=== PATIENT | female | born 1960 | race Caucasian/White ===

== ENCOUNTER → 2016-10-15 | Outpatient (CLI) | payer OTHER ==
--- NOTE | 2016-10-15 11:37 | MM ---
Reason for exam: additional evaluation requested from prior study. Last mammogram was performed 1 year and 1 month ago. History: Patient is postmenopausal and is nulliparous. Family history of breast cancer in maternal aunt at age 50. Benign left breast needle localization of both breasts, November 20, 2013. Benign US LT VAD breast biopsy of the left breast, September 13, 2013. Benign excisional biopsy of the left breast, 2006. Physical Findings: Nurse did not find any significant physical abnormalities on exam. MG 3D Diag Mammo W/Cad SU Bilateral CC and MLO view(s) were taken. Prior study comparison: September 22, 2015, bilateral MG 3d diag mammo w/cad SU. May 21, 2014, bilateral MG diagnostic mammo w CAD SU. The breast tissue is heterogeneously dense. This may lower the sensitivity of mammography. Finding #1: Architectural distortion in the left breast consistent with previous biopsy. Finding #2: There are typically benign calcifications in both breasts. These results were verbally communicated with the patient and result sheet given to the patient on 10/15/16. ASSESSMENT: Benign, BI-RAD 2 RECOMMENDATION: Routine screening mammogram of both breasts in 1 year.
== END | disposition home or self-care (01) ==
LOC: RADMAMWWP 10:34
PROVIDERS: ATTEND Surgery
DX: R92.8 Other abnormal and inconclusive findings on diagnostic imaging of breast (principal)
CPT/HCPCS: 77051 ×2; G0204; G0279

== ENCOUNTER → 2017-03-21 | Outpatient (CLI) | payer OTHER ==
--- NOTE | 2017-03-22 08:49 | CT ---
EXAMINATION TYPE: CT UROGRAM WO/W CON AND WITH 3-D RECONSTRUCTION RENDERINGS DATE OF EXAM: 03/21/2017 COMPARISON: NONE HISTORY: Microscopic hematuria, pelvic pain and back pain Technique: Departmental pre and postcontrast with delays and with multiple 3-D renderings at an [facility] workstation. CT DLP: 4521.40 mGycm. Automated exposure control for dose reduction was used. CONTRAST: Performed without and with IV Contrast, patient injected with 100 mL of Omnipaque 300. FINDINGS: The right kidney is markedly shrunken, measuring 5 x 4 x 3 cm. The left kidney measures 13 x 7 x 6 cm and has normal appearance. There are no renal calcifications or mass. Both kidneys enhance and excre te contrast. The upper and lower collecting systems have normal appearance. The urinary bladder has n ormal appearance. There are 2 subcentimeter low-attenuation left adrenal nodules, likely benign adrenal adenomas. A few scattered small simple hepatic cysts are noted. Prominent sigmoid diverticulosis is noted, without d iverticulitis. The remainder of the solid and hollow viscera of the abdomen and pelvis are negative f or visceromegaly or solid mass. There is a 2.5 cm calcification within the uterine fundus, consistent with incidental calcified leiomyoma. There are no abnormal gas or fluid collections. No adenopathy. Vasculature and skeletal structures ar e unremarkable, as are the extra abdominal pelvic visualized structures. IMPRESSION: MARKEDLY ATROPHIC RIGHT KIDNEY; NO OTHER GENITOURINARY FINDINGS.
== END | disposition home or self-care (01) ==
LOC: RADCTMAIN 18:57
PROVIDERS: ATTEND Urology
DX: R31.21 Asymptomatic microscopic hematuria (principal)
CPT/HCPCS: 74178; 74400; Q9967

== ENCOUNTER → 2017-09-06 | Outpatient (CLI) | payer OTHER ==
--- NOTE | 2017-09-06 16:58 | PN ---
PROGRESS NOTE I am seeing Nhung for followup regarding her CPAP treatment. The patient was diagnosed having symptomatic obstructive sleep apnea based on a home study that showed an AHI of 32, and there was a positional component to her disease where disease was worse in the supine body position, and she was started on a CPAP pressure of 11 cm of water. On today's evaluation, the patient is doing well. She is getting more accustomed to the CPAP therapy. Initially she was having some difficulties and ultimately she got switched to AirFit P10 nose pillows. Sometimes she feels that she cannot fully expand her lungs or take a deep breath; however, she does that also in the morning when she is awake while off the CPAP. As such, there may be an anxiety component to her subjective sensation of dyspnea. The patient is trying to become more compliant, as she is seeing benefit from the treatment and she seems to be waking up more alert and refreshed during the day. At times she leaks through her mouth and she is using a chin strap. Snoring has completely subsided. I have only a 19-day compliance data on her CPAP machine. I noted her treatment is successful. Leak is 20 L/minute. Her AHI is obviously less than 5, and as such the treatment has been successful . BP is 122/66, pulse 58, respirations 16. Temperature is 97.5 . Weight is 224, saturation 95% on room air. GENERAL APPEARANCE: Calm, comfortable. No acute distress. Head is atraumatic, normocephalic. Neck is supple. There is no JVD. No goiter or neck masses. LUNGS: Diminished breath sounds bilaterally; otherwise clear. Heart sounds are regular rate and rhythm. Normal S1, S2. No S3. No S4. No murmurs. Abdomen is soft, nontender. No organomegaly. EXTREMITIES: No edema. No cyanosis or clubbing. NEUROLOGIC: The patient is alert and oriented x3. There is no focal neurological deficit. PSYCHIATRIC: No anxiety or depression. IMPRESSION: 1. Symptomatic obstructive sleep apnea with an AHI of 32, currently on CPAP pressure of 11 cm of water. 2. Some difficulties tolerating the CPAP; however, despite subjective sensation of dyspnea, the patient is improving. Her AHI less than 5. No leaks around the mask and the patient seems to be benefiting from the treatment. 3. Hyperlipidemia. 4. Anxiety/depression. 5. Acid reflux. PLAN: 1. Continue treating the anxiety. 2. Continue treating the acid reflux. 3. Switch this patient to an automatic mode with a maximum pressure of 11, minimum pressure of 4. Automatic pressure will allow this patient to get exposed to lower CPAP pressures. 4. Use a chin strap if needed, especially if there are ongoing leaks from the mouth. 5. May consider switching this patient to a full-face mask at a later stage. I will see her back in 30 to 90 days for a full compliance evaluation. MMODL / IJN: [id number] /
== END ==
LOC: SLEEP 14:28
PROVIDERS: ATTEND Internal Medicine Critical Care Medicine
DX: G47.33 Obstructive sleep apnea (adult) (pediatric) (principal); E78.5 Hyperlipidemia, unspecified; F41.9 Anxiety disorder, unspecified; F32.9 Major depressive disorder, single episode, unspecified; K21.9 Gastro-esophageal reflux disease without esophagitis

== ENCOUNTER → 2017-11-01 | Outpatient (CLI) | payer OTHER ==
--- NOTE | 2017-11-01 20:26 | PN ---
PROGRESS NOTE DATE OF SERVICE: 11/01/2017. HISTORY: Nhung is doing well, coming in for a compliancy check. The patient was diagnosed having severe symptomatic obstructive sleep apnea with an AHI of 32. Initially she was started on CPAP pressure of 11, however, she was having some difficulty with air leak. I switch this patient to an automatic mode, maximizing the pressure at 11. I also gave her the AirFit N10 nose mask. On today's evaluation, she is doing better. Her average CPAP pressure is around 9.6 over the past 30 days. Her leak factor is only 19 L/minute. Her AHI while on treatment is down to 2.4 and her average CPAP use is around 8.7 hours per night. She is waking up refreshed and alert during the day. I think the adjustments done on the CPAP machine and the change in the mask interface helped with her overall compliance and clinical response. The patient is waking up much more alert and awake during the day. Her weight is stable, probably up by few pounds since her last evaluation. For the most part she does not have any new problems or comorbidities. PHYSICAL EXAMINATION: BP is 114/79, pulse 64, respirations 16, temp 97.5 saturation 96% on room air. Weight is 228, height 5 feet 7 inches, BMI 35.7. GENERAL APPEARANCE: Obese, calm, comfortable. HEAD: Atraumatic, normocephalic. NECK: Supple. No JVD. No goiter or neck masses. LUNGS: Clear to auscultation. HEART: Sounds regular rhythm. Normal S1, S2. No S3. No murmurs. ABDOMEN: Soft, nontender. No organomegaly. EXTREMITIES: No edema. No cyanosis or clubbing. NEUROLOGIC: Alert and oriented x3. There is no focal neurological deficit. IMPRESSION: 1. Symptomatic obstructive sleep apnea with an apnea-hypopnea index of 32. The patient has improved in terms of compliance and clinical response with above- mentioned adjustments. The leak factor is improved and the patient is tolerating the CPAP without any major difficulties. Currently she is on a auto CPAP with a maximum pressure of 11. 2. Hypersomnia, improved. 3. Hypertension. 4. Anxiety/depression. 5. Acid reflux. PLAN: 1. Continue auto CPAP with a maximum pressure of 11. 2. Continue N10 nose mask. 3. Weight loss. 4. See me back in a year's time in followup regarding obstructive sleep apnea. The patient will be also seen at the [facility]. MMODL / IJN: [id number] /
== END | disposition home or self-care (01) ==
LOC: SLEEP 16:07
PROVIDERS: ATTEND Internal Medicine Critical Care Medicine
DX: G47.33 Obstructive sleep apnea (adult) (pediatric) (principal); I10 Essential (primary) hypertension; F41.9 Anxiety disorder, unspecified; F32.9 Major depressive disorder, single episode, unspecified; K21.9 Gastro-esophageal reflux disease without esophagitis; Z99.89 Dependence on other enabling machines and devices

== ENCOUNTER → 2017-12-16 | Outpatient (CLI) | payer OTHER ==
--- NOTE | 2017-12-19 10:42 | MM ---
Reason for exam: screening (asymptomatic). Last mammogram was performed 1 year and 2 months ago. History: Patient is postmenopausal and is nulliparous. Family history of breast cancer in maternal aunt at age 50. Benign left breast needle localization of both breasts, November 20, 2013. Benign US LT VAD breast biopsy of the left breast, September 13, 2013. Benign excisional biopsy of the left breast, 2006. Physical Findings: A clinical breast exam by your physician is recommended on an annual basis and results should be correlated with mammographic findings. MG 3D Screening Mammo W/Cad Bilateral CC and MLO view(s) were taken. Prior study comparison: October 15, 2016, bilateral MG 3d diag mammo w/cad SU. September 22, 2015, bilateral MG 3d diag mammo w/cad SU. The breast tissue is heterogeneously dense. This may lower the sensitivity of mammography. No suspicious abnormality. Left post biopsy change. No significant changes when compared with prior studies. ASSESSMENT: Benign, BI-RAD 2 RECOMMENDATION: Routine screening mammogram of both breasts in 1 year.
== END | disposition home or self-care (01) ==
LOC: RADMAMWWP 11:02
PROVIDERS: ATTEND Obstetrics & Gynecology
DX: Z12.31 Encounter for screening mammogram for malignant neoplasm of breast (principal)
CPT/HCPCS: 77063; 77067

== ENCOUNTER 2018-12-27 09:43 | Day surgery (SDC) | payer OTHER ==
[2018-12-25 13:40] VITALS: BMI 35.6
--- NOTE | 2018-12-27 08:17 | P.GSHP ---
History of Present Illness H&P Date: 12/27/18 CHIEF COMPLAINT: GERD and colon screen HISTORY OF PRESENT ILLNESS: The patient is a 58-year-old female who presents with gastroesophageal reflux disease and need for colon screen. Upper and lower endoscopy were offered for further evaluation and management. PAST MEDICAL HISTORY: Please see list. PAST SURGICAL HISTORY: Please see list. MEDICATIONS: Please see list. ALLERGIES: Please see list. SOCIAL HISTORY: No illicit drug use FAMILY HISTORY: No reports of Crohn disease or ulcerative colitis. REVIEW OF ORGAN SYSTEMS: CONSTITUTIONAL: No reports of fevers or chills. GI: Denies any blood in stools or constipation. PHYSICAL EXAM: VITAL SIGNS: Stable GENERAL: Well-developed pleasant in no acute distress. HEENT: No scleral icterus. Extraocular movements grossly intact. Moist buccal mucosa. NECK: Supple without lymphadenopathy. CHEST: Unlabored respirations. Equal bilateral excursions. CARDIOVASCULAR: Regular rate and rhythm. Distal 2+ pulses. ABDOMEN: Soft, nondistended. MUSCULOSKELETAL: No clubbing, cyanosis, or edema. ASSESSMENT: 1. Gastroesophageal reflux disease 2. Colon screen. PLAN: 1. Recommend proceeding with an upper and lower endoscopy Past Medical History Past Medical History: COPD, GERD/Reflux, Hyperlipidemia, Sleep Apnea/CPAP/BIPAP Additional Past Medical History / Comment(s): hiatal hernia, IBS, diverticulitis, anemia, History of Any Multi-Drug Resistant Organisms: None Reported Past Surgical History: Breast Surgery Additional Past Surgical History / Comment(s): left breast biopsy Past Anesthesia/Blood Transfusion Reactions: No Reported Reaction Smoking Status: Former smoker - Past Family History Mother Family Medical History: No Reported History Medications and Allergies Home Medications Medication Instructions Recorded Confirmed Type Cholecalciferol [Vitamin D3] 2,000 unit PO DAILY 12/25/18 12/25/18 History FLUoxetine HCL [PROzac] 40 mg PO DAILY 12/25/18 12/25/18 History Ferrous Sulfate [Feosol] 325 mg PO HS 12/25/18 12/25/18 History Omeprazole [PriLOSEC] 20 mg PO AC-BRKFST 12/25/18 12/25/18 History Umeclidinium [place] [Incruse 1 puff INHALATION QAM 12/25/18 12/25/18 History Ellipta] Vitamin B Complex 1 each PO DAILY 12/25/18 12/25/18 History diphenhydrAMINE [Benadryl] 25 mg PO HS PRN 12/25/18 12/25/18 History Allergies Allergy/AdvReac Type Severity Reaction Status Date / Time acetaminophen [From [place]] Allergy Rash/Hives Verified 12/25/18 13:29 hydrocodone [From [place]] Allergy Rash/Hives Verified 12/25/18 13:29 nitrofurantoin Allergy Diarrhea Verified 12/25/18 13:30 [From Macrobid] Penicillins Allergy Rash/Hives Verified 12/25/18 13:29 piroxicam [From [place]] Allergy swelling Verified 12/25/18 13:29 of neck and face
[~2018-12-27 09:43] MED LIST: LIDOCAINE 1% 20 ML VIAL (10MG/ML) FOR IV START INTRADERMA PRN
[2018-12-27] MEDS: LACTATED RINGERS 1,000 ML IV SCH ×2 (10:06→10:11)
[2018-12-27 10:09] VITALS: RESP 16; TEMP 98.6
[2018-12-27] MEDS ORDERED: LIDOCAINE 1% INJ 10MG/ML (20 ML MDV) ONE (10:13)
[2018-12-27] MEDS ORDERED: PROPOFOL 10 MG/ML 20 ML VIAL IV ONE (10:13)
--- NOTE | 2018-12-27 10:54 | P.PCN ---
Date of Procedure: 12/27/18 Description of Procedure: PREOPERATIVE DIAGNOSIS: Gastroesophageal reflux disease. Epigastric abdominal pain History of hiatal hernia POSTOPERATIVE DIAGNOSIS: Gastroesophageal reflux disease. Epigastric abdominal pain Duodenitis, acute Chronic gastritis Gastric polyps OPERATION: Esophagogastroduodenoscopy with biopsies along antrum and duodenum SURGEON: Lola Nelson MD ANESTHESIA: MAC. INDICATIONS: The patient is a 58-year-old female who presents with a history of reflux disease that has come severe with epigastric abdominal pain. She reports history of hiatal hernia. As her symptoms have gotten worse, upper endoscopy was offered for further evaluation and assessment. Benefits and risks of the procedure were described. Informed consent was obtained. DESCRIPTION: The patient was brought into the endoscopy suite and laid in the left lateral decubitus position. An Olympus gastroscope was passed along the posterior oropharynx down to the distal esophagus where the squamocolumnar junction was encountered at 40 cm from the incisors. The stomach was entered and no bile reflux was found. Additional findings are listed below. Biopsies with cold forceps were obtained of the antrum. The first through third portion of the duodenum was examined and unremarkable. Retroflexion of the scope confirmed Hill grade 2 lower esophageal valve. The squamocolumnar junction demonstrated LA grade A erosive esophagitis. The stomach was desufflated. The patient tolerated the procedure well. FINDINGS: Squamocolumnar junction 40 cm from the incisors. Diaphragmatic hiatus at 40 cm. Hill grade 2 lower esophageal valve. LA grade A erosive esophagitis. Active duodenitis. Chronic gastritis Multiple gastric polyps RECOMMENDATIONS: Upper endoscopy as needed.
--- NOTE | 2018-12-27 11:16 | P.PCN ---
Date of Procedure: 12/27/18 Description of Procedure: PREOPERATIVE DIAGNOSIS: Family history of colon cancer History of colon polyps Colonoscopy screening. POSTOPERATIVE DIAGNOSIS: Family history of colon cancer History of colon polyps Colonoscopy screening. Moderate to severe pandiverticulosis OPERATION: Colonoscopy to the ileocecal valve and appendiceal orifice. SURGEON: Lola Nelson MD. ANESTHESIA: MAC. INDICATIONS: The patient is a 58-year-old female who presents for colonoscopy screening. Last colonoscopy 3 years ago with polyps. Benefits and risks were described and informed consent was obtained. DESCRIPTION OF PROCEDURE: The patient had undergone Gatorade, MiraLAX and Dulcolax prep. She had been brought into the operating room and laid in the left lateral decubitus position. After adequate intravenous sedation, the rectum was examined with 2% lidocaine jelly. No external hemorrhoids were encountered. The rectal tone was within normal limits. No lesions were palpated in the rectal vault. An Olympus colonoscope was advanced until the ileocecal valve and appendiceal orifice were clearly viewed. The prep was fair. The scope was removed with visualization of each mucosal fold. Scattered diverticulosis was encountered. Few 1-mm hyperplastic colonic polyps were at the sigmoid rectal junction found. No evidence of focal colitis was found. Retroflexion of the scope demonstrated grade 1 internal hemorrhoids without active bleeding or inflammation. The colon was desufflated. The patient had tolerated the procedure well. Withdrawal time was over 6 minutes. FINDINGS: [place] preparation quality scale 2 (1-5) Internal hemorrhoids, grade 1 No external prolapsed hemorrhoids. No arteriovenous malformations. No adenomatous polyps. No focal colitis. RECOMMENDATIONS: Lower endoscopy in 5 years2023 Plan - Discharge Summary New Discharge Prescriptions: No Action diphenhydrAMINE [Benadryl] 25 mg PO HS PRN PRN Reason: sleep Vitamin B Complex 1 each PO DAILY Ferrous Sulfate [Feosol] 325 mg PO HS Cholecalciferol [Vitamin D3] 2,000 unit PO DAILY Umeclidinium [place] [Incruse Ellipta] 1 puff INHALATION QAM Omeprazole [PriLOSEC] 20 mg PO AC-BRKFST FLUoxetine HCL [PROzac] 40 mg PO DAILY Discharge Medication List Cholecalciferol [Vitamin D3] 2,000 unit PO DAILY 12/25/18 [History] FLUoxetine HCL [PROzac] 40 mg PO DAILY 12/25/18 [History] Ferrous Sulfate [Feosol] 325 mg PO HS 12/25/18 [History] Omeprazole [PriLOSEC] 20 mg PO AC-BRKFST 12/25/18 [History] Umeclidinium [place] [Incruse Ellipta] 1 puff INHALATION QAM 12/25/18 [History] Vitamin B Complex 1 each PO DAILY 12/25/18 [History] diphenhydrAMINE [Benadryl] 25 mg PO HS PRN 12/25/18 [History] Follow up Appointment(s)/Referral(s): Lola Nelson MD [STAFF PHYSICIAN] - 01/16/19 Patient Instructions/Handouts: *[facility] - (Anesthesia) Endoscopy Discharge Instructions, Gastritis (ED), Colonoscopy (DC), Upper Endoscopy (DC), Diverticulitis Diet (GEN), Diverticulosis (GEN), Gastric Polyps (DC), Duodenitis (DC), Gastritis (DC) Activity/Diet/Wound Care/Special Instructions: Repeat colonoscopy in 5 years, 2023 Discharge Disposition: HOME SELF-CARE
[2018-12-27 11:37] VITALS: BP 135/86; PULSE 64
== END 2018-12-27 11:48 | disposition home or self-care (01) ==
LOC: ORWHC2ENDO 09:43
PROVIDERS: ATTEND Surgery Plastic and Reconstructive Surgery
DX: Z12.11 Encounter for screening for malignant neoplasm of colon (principal); K29.50 Unspecified chronic gastritis without bleeding; K29.80 Duodenitis without bleeding; K57.30 Diverticulosis of large intestine without perforation or abscess without bleeding; K63.5 Polyp of colon; K64.0 First degree hemorrhoids; K31.7 Polyp of stomach and duodenum; K21.0 Gastro-esophageal reflux disease with esophagitis; J44.9 Chronic obstructive pulmonary disease, unspecified; K21.9 Gastro-esophageal reflux disease without esophagitis; E78.5 Hyperlipidemia, unspecified; Z99.89 Dependence on other enabling machines and devices; Z87.891 Personal history of nicotine dependence; Z79.51 Long term (current) use of inhaled steroids; Z79.899 Other long term (current) drug therapy; Z88.0 Allergy status to penicillin; Z88.5 Allergy status to narcotic agent; Z88.1 Allergy status to other antibiotic agents; Z88.6 Allergy status to analgesic agent; Z86.010 Personal history of colon polyps; Z80.0 Family history of malignant neoplasm of digestive organs; K58.9 Irritable bowel syndrome, unspecified; F39 Unspecified mood [affective] disorder; G47.33 Obstructive sleep apnea (adult) (pediatric)
CPT/HCPCS: 43239; 88305; J2001; J2704; G0105

== ENCOUNTER → 2019-01-16 | Outpatient (CLI) | payer OTHER ==
--- NOTE | 2019-01-17 12:00 | MM ---
Reason for exam: screening (asymptomatic). Last mammogram was performed 1 year and 1 month ago. History: Patient is postmenopausal and is nulliparous. Family history of breast cancer in maternal aunt at age 50. Benign left breast needle localization of both breasts, November 20, 2013. Benign US LT VAD breast biopsy of the left breast, September 13, 2013. Benign excisional biopsy of the left breast, 2006. Physical Findings: A clinical breast exam by your physician is recommended on an annual basis and results should be correlated with mammographic findings. MG 3D Screening Mammo W/Cad Bilateral CC and MLO view(s) were taken. Prior study comparison: December 16, 2017, bilateral MG 3d screening mammo w/cad. October 15, 2016, bilateral MG 3d diag mammo w/cad SU. The breast tissue is heterogeneously dense. This may lower the sensitivity of mammography. No suspicious abnormality on the right breast. Left post surgical change and fat necrosis. ASSESSMENT: Incomplete: need additional imaging evaluation, BI-RAD 0 RECOMMENDATION: Ultrasound of the left breast. (regarding pain) [facility] will attempt to contact patient to return for ultrasound.
== END | disposition home or self-care (01) ==
LOC: RADMAMWWP 16:33
PROVIDERS: ATTEND Obstetrics & Gynecology
DX: Z12.31 Encounter for screening mammogram for malignant neoplasm of breast (principal); Z80.3 Family history of malignant neoplasm of breast
CPT/HCPCS: 77063; 77067

== ENCOUNTER → 2019-02-02 | Outpatient (CLI) | payer OTHER ==
--- NOTE | 2019-02-05 07:41 | USB ---
Reason for exam: additional evaluation requested from abnormal screening. History: Patient is postmenopausal and is nulliparous. Family history of breast cancer in maternal aunt at age 50. Benign left breast needle localization of both breasts, November 20, 2013. Benign US LT VAD breast biopsy of the left breast, September 13, 2013. Benign excisional biopsy of the left breast, 2006. Physical Findings: Nurse did not find any significant physical abnormalities on exam. US Breast Workup LT Left complete breast ultrasound includes all four quadrants, the retroareolar region and axilla. Finding demonstrates no cystic or solid lesion seen. These results were verbally communicated with the patient and result sheet given to the patient on 02/02/19. ASSESSMENT: Negative, BI-RAD 1 RECOMMENDATION: Return to routine screening mammogram schedule for both breasts. Manage on a clinical basis with regard to pain.
== END | disposition home or self-care (01) ==
LOC: RADUSWWP 15:07
PROVIDERS: ATTEND Obstetrics & Gynecology
DX: R92.8 Other abnormal and inconclusive findings on diagnostic imaging of breast (principal)

== ENCOUNTER → 2020-07-04 | Outpatient (CLI) | payer OTHER ==
--- NOTE | 2020-07-07 14:10 | MM ---
Reason for exam: screening (asymptomatic). Last mammogram was performed 1 year and 6 months ago. History: Patient is postmenopausal and is nulliparous. Family history of breast cancer in maternal aunt at age 50. Benign left breast needle localization of both breasts, November 20, 2013. Benign US LT VAD breast biopsy of the left breast, September 13, 2013. Benign excisional biopsy of the left breast, 2006. Physical Findings: A clinical breast exam by your physician is recommended on an annual basis and results should be correlated with mammographic findings. MG 3D Screening Mammo W/Cad Bilateral CC and MLO view(s) were taken. Prior study comparison: January 16, 2019, bilateral MG 3d screening mammo w/cad. December 16, 2017, bilateral MG 3d screening mammo w/cad. The breast tissue is heterogeneously dense. This may lower the sensitivity of mammography. Stable distortion left breast. No significant changes when compared with prior studies. ASSESSMENT: Benign, BI-RAD 2 RECOMMENDATION: Routine screening mammogram of both breasts in 1 year.
== END | disposition home or self-care (01) ==
LOC: RADMAMWWP 11:30
PROVIDERS: ATTEND Obstetrics & Gynecology
DX: Z12.31 Encounter for screening mammogram for malignant neoplasm of breast (principal)
CPT/HCPCS: 77063; 77067

== ENCOUNTER → 2021-07-31 | Outpatient (CLI) | payer MEDICAID ==
--- NOTE | 2021-08-03 11:45 | MM ---
Reason for exam: screening (asymptomatic). Last mammogram was performed 1 year and 1 month ago. History: Patient is postmenopausal and is nulliparous. Family history of breast cancer in maternal aunt at age 50. Benign left breast needle localization of both breasts, November 20, 2013. Benign US LT VAD breast biopsy of the left breast, September 13, 2013. Benign excisional biopsy of the left breast, 2006. Physical Findings: A clinical breast exam by your physician is recommended on an annual basis and results should be correlated with mammographic findings. MG 3D Screening Mammo W/Cad Bilateral CC and MLO view(s) were taken. Prior study comparison: July 04, 2020, bilateral MG 3d screening mammo w/cad. January 16, 2019, bilateral MG 3d screening mammo w/cad. The breast tissue is heterogeneously dense. This may lower the sensitivity of mammography. No suspicious calcifications are seen. Post operative distortion upper outer left breast. No significant changes when compared with prior studies. ASSESSMENT: Benign, BI-RAD 2 RECOMMENDATION: Routine screening mammogram of both breasts in 1 year.
== END | disposition home or self-care (01) ==
LOC: RADMAMWWP 11:13
PROVIDERS: ATTEND Family Medicine
DX: Z12.31 Encounter for screening mammogram for malignant neoplasm of breast (principal)
CPT/HCPCS: 77063; 77067

== ENCOUNTER → 2021-11-02 | Outpatient (CLI) | payer MEDICAID ==
--- NOTE | 2021-11-02 10:23 | CT ---
EXAMINATION TYPE: CT chest w con DATE OF EXAM: 11/02/2021 COMPARISON: Radiograph on 04/28/2022. Mammogram 07/31/2021. CT abdomen 03/21/2017 HISTORY: 61-year-old female R91.8 Abnormal lung field. Abnormal lung field TECHNIQUE: Contiguous axial scanning of the chest after the administration of 100 mL of Isovue 300. Coronal/sagittal reconstructions performed. CT DLP: 686mGycm. Automatic exposure control utilized for a dose reduction. FINDINGS: Stable postsurgical scar superior left breast. Heart normal size without pericardial effusion. Dimensional vessel branching anatomy. Aorta normal caliber. Mildly enlarged bilateral hilar lymph nodes measuring up to 1.1 cm on the right and 1.4 cm on the lef t. Otherwise, no thoracic lymphadenopathy by CT size criteria. Moderate upper lung centrilobular emphysema. Mild diffuse bronchial wall thickening. Mild dependent a telectasis. No consolidation or pleural effusion. No suspicious pulmonary nodules are seen at this ti me. The radiographic finding corresponds to summation artifact. Low density nodule left adrenal gland measuring 1.7 cm suggesting a lipid rich adrenal adenoma, uncha nged from 2017. Atretic right kidney redemonstrated. A few small cysts within the liver measuring up to 1.6 cm. Generalized colonic diverticulosis. Bones: Moderate degenerative disc disease lower thoracic spine. Additional focal degenerative endplat e sclerosis posteriorly at T6-T7. No osseous destructive process. IMPRESSION: 1. COPD with moderate emphysema. 2. Mildly enlarged hilar lymph node, one on each side, measuring up to 1.4 cm are probably reactive/p ost inflammatory. Six-month follow-up CT chest to reassess. 3. No suspicious pulmonary nodule is time. Radiographic findings compatible with summation artifact.
== END | disposition home or self-care (01) ==
LOC: RADCTMAIN 09:15
PROVIDERS: ATTEND Internal Medicine
DX: J43.9 Emphysema, unspecified (principal); R91.1 Solitary pulmonary nodule
CPT/HCPCS: 71260; Q9967

== ENCOUNTER → 2022-07-15 | Outpatient (CLI) | payer MEDICAID ==
--- NOTE | 2022-07-15 11:24 | CT ---
EXAMINATION TYPE: CT chest w con DATE OF EXAM: 07/15/2022 COMPARISON: HISTORY: lymphadenopathy CT DLP: 835 mGycm Automated exposure control for dose reduction was used. TECHNIQUE: CT scan of the chest is performed with IV Contrast, patient injected with 70 mL of Isovue 300. MIP I mages are created on CT scanner and reviewed. 3D reconstructed images are created on an independent w orkstation and reviewed. FINDINGS: LUNGS: The lungs are grossly clear, there is no concerning parenchymal mass or nodule identified. T here is no pleural effusion or pneumothorax seen. The tracheobronchial tree is patent. Diffuse emphy sematous changes. Subsegmental changes at the lung bases most typical of atelectasis. MEDIASTINUM: There are no greater than 1 cm hilar or mediastinal lymph nodes. No pericardial effusi on is seen. Aorta of normal caliber. OTHER: Atrophic right kidney. Hypodensity in the liver is too small to characterize but likely relat ed to small cysts. There is a 1.1 similar indeterminate left adrenal nodule stable from prior exam baljinder avalos on the basis of an adenoma. IMPRESSION: 1. Stable mediastinal and hilar shotty adenopathy unchanged from prior exam 2. COPD
== END | disposition home or self-care (01) ==
LOC: RADCTMAIN 10:00
PROVIDERS: ATTEND Internal Medicine Pulmonary Disease
DX: U07.1 COVID-19 (principal); R59.0 Localized enlarged lymph nodes
CPT/HCPCS: 71260; Q9967

== ENCOUNTER → 2022-10-21 | Outpatient (CLI) | payer MEDICAID ==
--- NOTE | 2022-10-23 16:15 | MM ---
Reason for Exam: Screening (asymptomatic). Last mammogram was performed 1 year(s) and 3 month(s) ago. Patient History: Menarche at age 15. Patient has no children. Postmenopausal. 2006, Benign Excisional Biopsy on the left side. 11/20/2013, Bilateral Benign Excisional Biopsy. 09/13/2013, Benign Core Biopsy on the left side. Maternal aunt had breast cancer, age 50. Risk Values: Angelic 5 year model risk: 2.3%. NCI Lifetime model risk: 10.6%. Prior Study Comparison: 01/16/2019 Bilateral Screening Mammogram, [facility]. 07/04/2020 Bilateral Screening Mammogram, [facility]. 07/31/2021 Bilateral Screening Mammogram, [facility]. Tissue Density: The breast tissue is heterogeneously dense. This may lower the sensitivity of mammography. Findings: Analyzed By CAD. Postexcisional changes are redemonstrated in both sites. Areas of asymmetric density remain unchanged. No significant change from prior exams. There is no suspicious group of microcalcifications or new suspicious mass in either breast. Overall Assessment: Benign, BI-RAD 2 Management: Screening Mammogram of both breasts in 1 year. 1. Patient should continue monthly self breast exams. 2. A clinical breast exam by your physician is recommended on an annual basis. 3. This exam should not preclude additional follow-up of suspicious palpable abnormalities. Electronically signed and approved by: Elvin Sanchez M.D. Radiologist
== END | disposition home or self-care (01) ==
LOC: RADMAMWWP 12:38
PROVIDERS: ATTEND Obstetrics & Gynecology
DX: Z12.31 Encounter for screening mammogram for malignant neoplasm of breast (principal); Z78.0 Asymptomatic menopausal state; Z80.3 Family history of malignant neoplasm of breast
CPT/HCPCS: 77063; 77067

== ENCOUNTER → 2023-03-29 | Outpatient (CLI) | payer MEDICAID ==
--- NOTE | 2023-04-03 21:44 | MR ---
EXAMINATION TYPE: MR hip LT wo con DATE OF EXAM: 03/29/2023 COMPARISON: None. HISTORY: Lt hip pain, hx of bursitis Standard multiplanar, multisequence MRI departmental protocol Multiplanar, multisequence images of the pelvis were acquired without contrast. FINDINGS: Moderate axial joint space loss and mild spurring in both hips is seen. Femoral head shapes are maintained bilaterally. No significant spurring is seen. No suspicious increased T2 signal are o sseous edema. Small symmetric hip joint effusions presumed physiologic. No serpiginous diminished T1 signal to suggest avascular necrosis. Increased fluid signal at level of the greater trochanter on th e left. Symmetric benign appearing bilateral groin lymph nodes. No abnormal greater than 1 cm groin a denopathy. No groin hernia. Muscle bulk is symmetric and maintained. Sigmoid colonic diverticulosis is present. Within the uterus projecting to right of midline there is a round 2.6 cm T1 and T2 hypointense lesion presumed fibroid axial image 24. No free fluid in the pel vis. Urinary bladder appears within normal limits. IMPRESSION: Moderate degenerative changes in both hips. There is asymmetric left-sided greater trocha nteric insertional tendinosis.
== END | disposition home or self-care (01) ==
LOC: RADMRIMAIN 07:29
PROVIDERS: ATTEND Orthopaedic Surgery
DX: S72.092A Other fracture of head and neck of left femur, initial encounter for closed fracture (principal); M16.0 Bilateral primary osteoarthritis of hip

== ENCOUNTER → 2023-06-23 | Outpatient (CLI) | payer MEDICAID ==
--- NOTE | 2023-06-23 19:07 | MR ---
EXAMINATION TYPE: MR lumbar spine wo con DATE OF EXAM: 06/23/2023 5:04 PM CLINICAL INDICATION:Female, 62 years old with history of M47.817 SPONDYLS W/O MYELOPATHY O, Low back pain that radiates down left leg. COMPARISON: None TECHNIQUE: Multi planar, multi sequence imaging was performed utilizing: T1-weighted, T2-weighted, a nd turbo inversion recovery imaging of the lumbar spine. IV Contrast: None. FINDINGS: Alignment: The lumbar vertebral bodies have preserved heights and alignment. Cord: The conus medullaris and the distal spinal cord appear unremarkable with regards to their signa l intensity and morphology. Bones/Discs: Multilevel disc degeneration changes with osteophyte formation, disc space narrowing, Mo dic endplate changes, and facet joint arthropathy. Inversion recovery signal within the Modic endplat e changes of T11-T12 anteriorly. Intervertebral disc signal is maintained. T12-L1: No evidence of significant spinal canal stenosis or neural foraminal stenosis. L1-L2: No evidence of significant spinal canal stenosis or neural foraminal stenosis. L2-L3: No evidence of significant spinal canal stenosis or neural foraminal stenosis. L3-L4: No evidence of significant spinal canal stenosis or neural foraminal stenosis. L4-L5: No evidence of significant spinal canal stenosis or neural foraminal stenosis. High inversion recovery signal seen around the facets at this level. L5-S1: The disc is rounded posterior morphology without significant spinal canal stenosis. Facet join t arthropathy with mild neural foraminal stenosis. No significant spinal canal or neural foraminal stenosis in the remainder of the visualized levels. Other findings: Atrophic appearing right kidney. Multiple peripelvic cysts on the left. Scattered co lonic diverticula. IMPRESSION: 1. No definitive evidence of disc herniation or significant spinal canal stenosis. 2. Multilevel disc degeneration with associated osteoarthritic changes without significant neural fo raminal stenosis. Active inflammation of the L4-L5 facet joints and at the level of T11-T12 anteriorl y the adjoining endplates.
== END | disposition home or self-care (01) ==
LOC: RADMRIMAIN 16:00
PROVIDERS: ATTEND Physical Medicine & Rehabilitation
DX: M47.27 Other spondylosis with radiculopathy, lumbosacral region (principal); M51.16 Intervertebral disc disorders with radiculopathy, lumbar region; Z87.19 Personal history of other diseases of the digestive system
CPT/HCPCS: 72148

== ENCOUNTER → 2023-09-23 | Outpatient (CLI) | payer MEDICAID ==
--- NOTE | 2023-09-23 16:02 | CT ---
EXAMINATION TYPE: CT chest w con DATE OF EXAM: 09/23/2023 COMPARISON: 07/15/2022 HISTORY: 63-year-old female R5 9.0, localized enlarged lymph nodes. TECHNIQUE: Contiguous axial scanning of the chest after the administration of 100 mL of Isovue 300. Coronal/sagittal reconstructions performed. CT DLP: 462.7mGycm. Automatic exposure control utilized for a dose reduction. FINDINGS: The heart is normal size of the pericardial effusion. Aorta normal caliber with conventional arch vessel branching anatomy. Borderline to mildly enlarged caliber to the main right and left pulmonary arteries measuring up to 2 .8 cm suggesting underlying pulmonary arterial hypertension. Prominent bilateral hilar lymph nodes measuring up to 1.5 cm on the right and 1.7 cm on the left. 1.6 cm in the AP window. These have increased compared to 07/15/2022. Strandy atelectasis and mild dependent atelectasis in the lower lungs. There is mild to moderate emph ysematous change. No consolidation or pleural effusion. Small hiatal hernia. Visualized upper abdomen show similar nodular low-density thickening of the left adrenal gland and atrophic right kidney. 1.7 cm cyst inferior right kidney. Moderate degenerative disc disease T11-T12. No osseous destructive process. IMPRESSION: 1. COPD with [id number] emphysema and pulmonary arterial hypertension. 2. Prominent bilateral hilar adenopathy measuring up to 1.7 cm. Additional adenopathy in the AP windo w measuring 1.6 cm. These nodes have enlarged compared to 07/15/2022 and may be reactive/post inflamma tory. Differential includes early lymphoma, metastatic disease, systemic fungal/mycobacterial infecti ons, connective tissue disorders, and granulomatous disease such as sarcoidosis. Depending on clinica l suspicion, follow-up in 2-3 months. 3. Small hiatal hernia.
== END | disposition home or self-care (01) ==
LOC: RADCTMAIN 08:39
PROVIDERS: ATTEND Internal Medicine Pulmonary Disease
DX: J44.9 Chronic obstructive pulmonary disease, unspecified (principal); I27.20 Pulmonary hypertension, unspecified; J43.9 Emphysema, unspecified; K44.9 Diaphragmatic hernia without obstruction or gangrene; R59.0 Localized enlarged lymph nodes
CPT/HCPCS: 71260; Q9967

== ENCOUNTER → 2023-10-27 | Outpatient (CLI) | payer MEDICAID ==
--- NOTE | 2023-11-05 21:31 | MR ---
EXAMINATION TYPE: MR humerus LT wo/w con DATE OF EXAM: 10/27/2023 COMPARISON: NONE HISTORY: 63-year-old female R22.9, Lump on Lt upper arm proximal to shoulder Technique: Multiplanar, multisequence images of the proximal two thirds of the left humerus were obta ined before and after administration of 12 mL intravenous Gadavist gadolinium contrast. FINDINGS: There is an oval mass comprised of fat signal intensity located deep to the posterolateral deltoid mu sculature and protruding posteriorly and inferiorly to abut scallop the margin of the triceps muscula ture. This measures 7.8 cm craniocaudal by 7.7 cm AP by 3.8 cm wide. Some minimal cyst in stranding/septations are present along the superior most margin. No abnormal thi ckened or nodular enhancement is identified. No underlying bone marrow replacement. There may be moderate to severe degenerative change of the AC joint with marginal spurring, small eff usion, and some degenerative subchondral marrow signal change. No atrophy of the rotator cuff musculature. No effusion within the subacromial/subdeltoid bursa. Overall preserved bulk of the rotator cuff tendo ns. Radiographs could better assess the glenohumeral joint. IMPRESSION: 1. The palpable area corresponds to a large, 7.8 x 7.7 x 3.8 cm circumscribed fatty mass deep to the posterolateral deltoid muscle and protruding posteriorly and inferiorly to abut and scallop the arely n of the triceps muscle. The fatty tumor shows minimal thin septations within the superior aspect. Th ere is no abnormal thickened or nodular enhancement. While findings may represent a simple lipoma, gi idalia the size and thin septations, atypical lipomatous tumor and low-grade liposarcoma are also in the differential. Correlate for any history of growth. Consider orthopedic oncology referral for future surveillance/management. 2. Incidental: Moderate to severe AC joint OA.
== END | disposition home or self-care (01) ==
LOC: RADMRIMAIN 11:25
PROVIDERS: ATTEND Family Medicine
DX: R22.9 Localized swelling, mass and lump, unspecified (principal)
CPT/HCPCS: 73220; A9585

== ENCOUNTER 2023-12-28 09:45 | Day surgery (SDC) | payer MEDICAID ==
[2023-12-26 14:02] VITALS: BMI 36.0
--- NOTE | 2023-12-28 08:28 | P.GSHP ---
History of Present Illness H&P Date: 12/28/23 CHIEF COMPLAINT: Colon screen HISTORY OF PRESENT ILLNESS: The patient is a 63-year-old female who presents for colon screen. Lower endoscopy was offered for further evaluation and management. PAST MEDICAL HISTORY: Please see list. PAST SURGICAL HISTORY: Please see list. MEDICATIONS: Please see list. ALLERGIES: Please see list. SOCIAL HISTORY: No illicit drug use FAMILY HISTORY: No reports of Crohn disease or ulcerative colitis. REVIEW OF ORGAN SYSTEMS: CONSTITUTIONAL: No reports of fevers or chills. PHYSICAL EXAM: VITAL SIGNS: Stable GENERAL: Well-developed pleasant in no acute distress. HEENT: No scleral icterus. Extraocular movements grossly intact. Moist buccal mucosa. NECK: Supple without lymphadenopathy. CHEST: Unlabored respirations. Equal bilateral excursions. CARDIOVASCULAR: Regular rate and rhythm. Distal 2+ pulses. ABDOMEN: Soft, nontender, nondistended. MUSCULOSKELETAL: No clubbing, cyanosis, or edema. ASSESSMENT: 1. Colon screen. PLAN: 1. Recommend proceeding with a lower endoscopy Past Medical History Past Medical History: Asthma, COPD, GERD/Reflux, Hyperlipidemia, Sleep Apnea/CPAP/BIPAP Additional Past Medical History / Comment(s): hiatal hernia, IBS, diverticulitis, anemia, cpap History of Any Multi-Drug Resistant Organisms: None Reported Past Surgical History: Breast Surgery Additional Past Surgical History / Comment(s): left breast biopsy, colonoscopy Past Anesthesia/Blood Transfusion Reactions: No Reported Reaction Additional Past Anesthesia/Blood Transfusion Reaction / Comment(s): no blood transfusion Smoking Status: Never smoker - Past Family History Mother Family Medical History: No Reported History Medications and Allergies Home Medications Medication Instructions Recorded Confirmed Type Cholecalciferol [Vitamin D3] 2,000 unit PO DAILY 12/25/18 12/26/23 History FLUoxetine HCL [PROzac] 40 mg PO DAILY 12/25/18 12/26/23 History Omeprazole [PriLOSEC] 20 mg PO AC-BRKFST 12/25/18 12/26/23 History diphenhydrAMINE [Benadryl] 25 mg PO HS PRN 12/25/18 12/26/23 History Azelastine HCl [Astelin Nasal 137 mcg NASAL BID 12/26/23 12/26/23 History [place]] Chlorthalidone 25 mg PO DAILY 12/26/23 12/26/23 History Fluticasone Nasal [place] [Flonase 2 spray EA NOSTRIL DAILY 12/26/23 12/26/23 History Nasal [place]] Fluticasone/Umeclidin/Vilanter 1 spray PO DAILY 12/26/23 12/26/23 History [Lupis Ellipta 100-62.5-25] Melatonin [Melatonin ER] 3 mg PO HS 12/26/23 12/26/23 History Allergies Allergy/AdvReac Type Severity Reaction Status Date / Time acetaminophen [From [place]] Allergy Rash/Hives Verified 12/26/23 13:42 hydrocodone [From [place]] Allergy Rash/Hives Verified 12/26/23 13:42 nitrofurantoin Allergy Diarrhea Verified 12/26/23 13:42 [From Macrobid] Penicillins Allergy Rash/Hives Verified 12/26/23 13:42 piroxicam [From Feldene] Allergy swelling Verified 12/26/23 13:42 of neck and face
[2023-12-28] MEDS: LACTATED RINGERS 1,000 ML IV SCH (10:18)
[2023-12-28 10:22] VITALS: TEMP 97.3
[2023-12-28] MEDS ORDERED: PROPOFOL 10 MG/ML 20 ML VIAL IV ONE (10:26)
[2023-12-28 11:02] VITALS: RESP 16
--- NOTE | 2023-12-28 11:20 | P.PCN ---
Date of Procedure: 12/28/23 Description of Procedure: PREOPERATIVE DIAGNOSIS: Colonoscopy screening. POSTOPERATIVE DIAGNOSIS: Poor prep with solid stool OPERATION: Colonoscopy to the sigmoid colon. SURGEON: Lola Nelson MD. ANESTHESIA: MAC. INDICATIONS: The patient is a 63-year-old female who presents for colonoscopy screening. Her last colonoscopy 5 years ago. Benefits and risks were described and informed consent was obtained. DESCRIPTION OF PROCEDURE: The patient had undergone Sutab prep. She had been brought into the operating room and laid in the left lateral decubitus position. After adequate intravenous sedation, the rectum was examined with 2% lidocaine jelly. No external hemorrhoids were encountered. The rectal tone was loose. No lesions were palpated in the rectal vault. Solid stool was identified at 40 cm from the anal verge. Procedure discontinued due to poor prep Withdrawal time was over 6 minutes. FINDINGS: [place] preparation quality scale 5 (1-5) Sigmoid diverticulosis Scope advanced to sigmoid colon at 40 cm. Nondiagnostic colonoscopy due to poor prep RECOMMENDATIONS: Will need adjusted prep for completion Plan - Discharge Summary Discharge Rx Participant: No New Discharge Prescriptions: Continue diphenhydrAMINE [Benadryl] 25 mg PO HS PRN PRN Reason: sleep Cholecalciferol [Vitamin D3 (25 Mcg = 1000 Iu)] 2,000 unit PO DAILY Omeprazole [PriLOSEC] 20 mg PO AC-BRKFST FLUoxetine HCL [PROzac] 40 mg PO DAILY Melatonin [Melatonin ER] 3 mg PO HS Fluticasone/Umeclidin/Vilanter [Trelegy Ellipta 100-62.5-25] 1 spray PO DAILY Fluticasone Nasal [place] [Flonase Nasal [place]] 2 spray EA NOSTRIL DAILY Chlorthalidone 25 mg PO DAILY Azelastine HCl [Astelin Nasal [place]] 137 mcg NASAL BID Discharge Medication List Cholecalciferol [Vitamin D3 (25 Mcg = 1000 Iu)] 2,000 unit PO DAILY 12/25/18 [History] FLUoxetine HCL [PROzac] 40 mg PO DAILY 12/25/18 [History] Omeprazole [PriLOSEC] 20 mg PO AC-BRKFST 12/25/18 [History] diphenhydrAMINE [Benadryl] 25 mg PO HS PRN 12/25/18 [History] Azelastine HCl [Astelin Nasal [place]] 137 mcg NASAL BID 12/26/23 [History] Chlorthalidone 25 mg PO DAILY 12/26/23 [History] Fluticasone Nasal [place] [Flonase Nasal [place]] 2 spray EA NOSTRIL DAILY 12/26/23 [History] Fluticasone/Umeclidin/Vilanter [Trelegy Ellipta 100-62.5-25] 1 spray PO DAILY 12/26/23 [History] Melatonin [Melatonin ER] 3 mg PO HS 12/26/23 [History] Follow up Appointment(s)/Referral(s): Lola Nelson MD [STAFF PHYSICIAN] - 01/10/24 3:30 pm Patient Instructions/Handouts: *Surgery [facility] - (Anesthesia) Discharge I nstructions Outpatient Surgery, Diverticulosis (DC) Activity/Diet/Wound Care/Special Instructions: Inconclusive colonoscopy. Need repeat Discharge Disposition: HOME SELF-CARE
[2023-12-28 11:38] VITALS: BP 111/73; PULSE 74
== END 2023-12-28 11:42 | disposition home or self-care (01) ==
LOC: ORWHC2ENDO 09:45
PROVIDERS: ATTEND Surgery Plastic and Reconstructive Surgery
DX: Z12.11 Encounter for screening for malignant neoplasm of colon (principal); K57.30 Diverticulosis of large intestine without perforation or abscess without bleeding; J44.9 Chronic obstructive pulmonary disease, unspecified; K21.9 Gastro-esophageal reflux disease without esophagitis; E78.5 Hyperlipidemia, unspecified; K58.9 Irritable bowel syndrome, unspecified; F32.A Depression, unspecified; F41.9 Anxiety disorder, unspecified; G47.33 Obstructive sleep apnea (adult) (pediatric); Z88.5 Allergy status to narcotic agent; Z88.2 Allergy status to sulfonamides; Z88.6 Allergy status to analgesic agent; Z91.013 Allergy to seafood; Z87.891 Personal history of nicotine dependence; Z79.899 Other long term (current) drug therapy; Z98.890 Other specified postprocedural states
CPT/HCPCS: J2704; G0104; 45330

== ENCOUNTER 2024-02-02 10:00 | Day surgery (SDC) | payer MEDICAID ==
[2024-01-30 13:41] VITALS: BMI 36.9
--- NOTE | 2024-02-02 08:44 | P.GSHP ---
History of Present Illness H&P Date: 02/02/24 CHIEF COMPLAINT: Colon screen HISTORY OF PRESENT ILLNESS: The patient is a 63-year-old female who presents for colon screen. She had prior attempts however due to extremely poor prep, procedure was immediately aborted. Lower endoscopy was offered for further evaluation and management. PAST MEDICAL HISTORY: Please see list. PAST SURGICAL HISTORY: Please see list. MEDICATIONS: Please see list. ALLERGIES: Please see list. SOCIAL HISTORY: No illicit drug use FAMILY HISTORY: No reports of Crohn disease or ulcerative colitis. REVIEW OF ORGAN SYSTEMS: CONSTITUTIONAL: No reports of fevers or chills. PHYSICAL EXAM: VITAL SIGNS: Stable GENERAL: Well-developed pleasant in no acute distress. HEENT: No scleral icterus. Extraocular movements grossly intact. Moist buccal mucosa. NECK: Supple without lymphadenopathy. CHEST: Unlabored respirations. Equal bilateral excursions. CARDIOVASCULAR: Regular rate and rhythm. Distal 2+ pulses. ABDOMEN: Soft, nontender, nondistended. MUSCULOSKELETAL: No clubbing, cyanosis, or edema. ASSESSMENT: 1. Colon screen. PLAN: 1. Recommend proceeding with a lower endoscopy Past Medical History Past Medical History: Asthma, COPD, GERD/Reflux, Hyperlipidemia, Hypertension, Sleep Apnea/CPAP/BIPAP Additional Past Medical History / Comment(s): hiatal hernia, IBS, diverticulitis, cpap History of Any Multi-Drug Resistant Organisms: None Reported Past Surgical History: Breast Surgery Additional Past Surgical History / Comment(s): left breast biopsy, colonoscopy, egd Past Anesthesia/Blood Transfusion Reactions: No Reported Reaction Additional Past Anesthesia/Blood Transfusion Reaction / Comment(s): no blood transfusion Smoking Status: Former smoker - Past Family History Mother Family Medical History: No Reported History Medications and Allergies Home Medications Medication Instructions Recorded Confirmed Type Cholecalciferol [Vitamin D3 (25 2,000 unit PO DAILY 12/25/18 01/30/24 History Mcg = 1000 Iu)] FLUoxetine HCL [PROzac] 40 mg PO DAILY 12/25/18 01/30/24 History Omeprazole [PriLOSEC] 20 mg PO AC-BRKFST 12/25/18 01/30/24 History Azelastine HCl [Astelin Nasal 137 mcg NASAL BID 12/26/23 01/30/24 History [place]] Chlorthalidone 25 mg PO DAILY 12/26/23 01/30/24 History Fluticasone Nasal [place] [Flonase 2 spray EA NOSTRIL DAILY 12/26/23 01/30/24 History Nasal [place]] Fluticasone/Umeclidin/Vilanter 1 spray PO DAILY 12/26/23 01/30/24 History [Lupis [place] 100-62.5-25] Melatonin [Melatonin ER] 3 mg PO HS 12/26/23 01/30/24 History Allergies Allergy/AdvReac Type Severity Reaction Status Date / Time acetaminophen [From [place]] Allergy Rash/Hives Verified 01/30/24 13:25 hydrocodone [From [place]] Allergy Rash/Hives Verified 01/30/24 13:25 nitrofurantoin Allergy Diarrhea Verified 01/30/24 13:25 [From Macrobid] Penicillins Allergy Rash/Hives Verified 01/30/24 13:25 piroxicam [From Feldene] Allergy swelling Verified 01/30/24 13:25 of neck and face
[2024-02-02] MEDS: LACTATED RINGERS 1,000 ML IV SCH (10:49)
[2024-02-02 10:59] VITALS: RESP 16; TEMP 98.8
[2024-02-02] MEDS ORDERED: PROPOFOL 10 MG/ML 20 ML VIAL IV ONE (11:10)
--- NOTE | 2024-02-02 11:58 | P.PCN ---
Date of Procedure: 02/02/24 Description of Procedure: PREOPERATIVE DIAGNOSIS: Personal history of colon polyps History of poor prep POSTOPERATIVE DIAGNOSIS: Tubular adenoma ascending colon Severe sigmoid diverticulosis with stricture Pandiverticulosis OPERATION: Colonoscopy to the ileocecal valve and appendiceal orifice, cecum Colonoscopy with hot snare polypectomy SURGEON: Lola Nelson MD. ANESTHESIA: MAC. INDICATIONS: The patient is an 63-year-old male who presents personal history of colon polyps. Last colonoscopy 5 years. Benefits and risks were described and informed consent was obtained. DESCRIPTION OF PROCEDURE: The patient had undergone Sutab prep. The patient had been brought into the operating room and laid in the left lateral decubitus position. After adequate intravenous sedation, the rectum was examined with 2% lidocaine jelly. The prostate was unremarkable. No external hemorrhoids were encountered. The rectal tone was within normal limits. No lesions were palpated in the rectal vault. An Olympus pediatriccolonoscope was advanced until the cecum, ileocecal valve and appendiceal orifice were clearly viewed. The prep was fair. Sigmoid diverticulosis, severe was encounteredwith stricture at 20-30 cm from the anal verge. Colonic polyps were found and removed. No evidence of focal colitis was found. Retroflexion of the scope demonstrated grade 1 internal hemorrhoids without active bleeding or inflammation. The colon was desufflated. The patient had tolerated the procedure well. Withdrawal time was over 6 minutes. FINDINGS: [place] preparation quality scale 3+ (1-5) Internal hemorrhoids, grade 1 No external hemorrhoids No arteriovenous malformations. Pandiverticulosis with semisolid stool Sigmoid diverticulosis, severe with stricturea 20-30 cm from anal verge Removal of 1 polyps: - Snare polypectomy ascending colon, 5 mm tubulovillous adenoma No focal colitis. RECOMMENDATIONS: Given severity of tubular adenomas, recommend repeat colonoscopy 3 years May benefit from partial colectomy for symptomatic diverticulosis with partial obstruction Plan - Discharge Summary Discharge Rx Participant: No New Discharge Prescriptions: Continue Cholecalciferol [Vitamin D3 (25 Mcg = 1000 Iu)] 2,000 unit PO DAILY Omeprazole [PriLOSEC] 20 mg PO AC-BRKFST FLUoxetine HCL [PROzac] 40 mg PO DAILY Melatonin [Melatonin ER] 3 mg PO HS Fluticasone/Umeclidin/Vilanter [Trelegy Ellipta 100-62.5-25] 1 spray PO DAILY Fluticasone Nasal [place] [Flonase Nasal [place]] 2 spray EA NOSTRIL DAILY Chlorthalidone 25 mg PO DAILY Azelastine HCl [Astelin Nasal [place]] 137 mcg NASAL BID Discharge Medication List Cholecalciferol [Vitamin D3 (25 Mcg = 1000 Iu)] 2,000 unit PO DAILY 12/25/18 [History] FLUoxetine HCL [PROzac] 40 mg PO DAILY 12/25/18 [History] Omeprazole [PriLOSEC] 20 mg PO AC-BRKFST 12/25/18 [History] Azelastine HCl [Astelin Nasal [place]] 137 mcg NASAL BID 12/26/23 [History] Chlorthalidone 25 mg PO DAILY 12/26/23 [History] Fluticasone Nasal [place] [Flonase Nasal [place]] 2 spray EA NOSTRIL DAILY 12/26/23 [History] Fluticasone/Umeclidin/Vilanter [Trelegy Ellipta 100-62.5-25] 1 spray PO DAILY 12/26/23 [History] Melatonin [Melatonin ER] 3 mg PO HS 12/26/23 [History] Follow up Appointment(s)/Referral(s): Lola Nelson MD [STAFF PHYSICIAN] - 02/07/24 2:15 pm Patient Instructions/Handouts: *Surgery [facility] - (Anesthesia) Discharge Instructions Outpatient Surgery, Diverticulosis (ED), Colorectal Polyps (GEN), Diverticulosis Diet (GEN) Activity/Diet/Wound Care/Special Instructions: Repeat colonoscopy 3 years2026 Discharge Disposition: HOME SELF-CARE
[2024-02-02 12:28] VITALS: BP 113/80; PULSE 72
== END 2024-02-02 12:28 | disposition home or self-care (01) ==
LOC: ORWHC2ENDO 10:00
PROVIDERS: ATTEND Surgery Plastic and Reconstructive Surgery
DX: Z12.11 Encounter for screening for malignant neoplasm of colon (principal); D12.2 Benign neoplasm of ascending colon; K57.30 Diverticulosis of large intestine without perforation or abscess without bleeding; K64.0 First degree hemorrhoids; K62.4 Stenosis of anus and rectum; J44.9 Chronic obstructive pulmonary disease, unspecified; K21.9 Gastro-esophageal reflux disease without esophagitis; I10 Essential (primary) hypertension; G47.33 Obstructive sleep apnea (adult) (pediatric); E78.5 Hyperlipidemia, unspecified; K58.9 Irritable bowel syndrome, unspecified; Z86.010 Personal history of colon polyps; Z87.891 Personal history of nicotine dependence; Z79.899 Other long term (current) drug therapy; Z88.5 Allergy status to narcotic agent; Z88.0 Allergy status to penicillin; Z88.1 Allergy status to other antibiotic agents; Z98.890 Other specified postprocedural states
CPT/HCPCS: 88305; 45385; J2704

== ENCOUNTER → 2024-03-13 | Outpatient (CLI) | payer MEDICAID ==
--- NOTE | 2024-03-13 20:35 | BD ---
EXAMINATION TYPE: Axial Bone Density DATE OF EXAM: 03/13/2024 CLINICAL HISTORY: 63 years old Female. ICD-10 CODE: Z78.0 ASYMPTOMATIC MENOPAUSAL Height: 67 Weight: 236.9 FRAX RISK QUESTIONS: Alcohol (3 or more units per day): no Family History (Parent hip fracture): no Glucocorticoids (More than 3mos): no (Ex: prednisone, prednisolone, methylprednisolone, dexamethasone, and hydrocortisone). History of Fracture in Adulthood: no Secondary Osteoporosis: 1. Type 1 Diabetes: no 2. Hyperthyroidism: no 3. Menopause before 45:yes 4. Malnutrition: no 5. Chronic liver disease: no Rheumatoid Arthritis: no Current Tobacco Use: no RISK FACTORS HISTORY OF: Surgery to Spine/Hip(right/left)/Wrist (right/left): no EXAM MEASUREMENTS: Bone mineral densitometry was performed using the [email or web address] System. Bone mineral density as measured about the Lumbar spine is: ----- L1-L4(G/cm2): 1.100 T Score Values are as follows: ----- L1: -0.5 ----- L2: -0.9 ----- L3: -0.1 ----- L4: -1.2 ----- L1-L4: -0.7 Z Score Values are as follows: ----- L1: -0.3 ----- L2: -0.7 ----- L3: 0.1 ----- L4: -1.0 ----- L1-L4: -0.4 Bone mineral density : baseline Bone mineral density about the R hip (g/cm2): 0.928 Bone mineral density about the L hip (g/cm2): 0.896 T Score values are as follows: -----R Neck: -1.7 -----L Neck: -1.8 -----R Total: -0.6 -----L Total: -0.9 Z Score values are as follows: -----R Neck: -1.1 -----L Neck: -1.3 -----R Total: -0.4 -----L Total: -0.7 Bone mineral density : baseline FRAX%s: The graph provided illustrates a 8.8% chance for a major osteoporotic fx and a 1.0% chance fo r the hips probability for fx in 10 years time. IMPRESSION: Osteopenia (T Score between -2.5 and -1). There is slightly increased risk of fracture and the patient may be considered for treatment. Re-Screen 2-5 years. NOTE: T-SCORE=SD OF THE YOUNG ADULT MEAN.
--- NOTE | 2024-03-14 18:49 | MM ---
Reason for Exam: Screening (asymptomatic). Last mammogram was performed 1 year(s) and 5 month(s) ago. Patient History: Menarche at age 15. Patient has no children. Postmenopausal. 2006, Benign Excisional Biopsy on the left side. 11/20/2013, Bilateral Benign Excisional Biopsy. 09/13/2013, Benign Core Biopsy on the left side. Maternal aunt had breast cancer, age 50. Risk Values: Angelic 5 year model risk: 2.3%. NCI Lifetime model risk: 10.3%. Prior Study Comparison: 07/04/2020 Bilateral Screening Mammogram, [facility]. 07/31/2021 Bilateral Screening Mammogram, [facility]. 10/21/2022 Bilateral MG 3D screening mammo w/cad, [facility]. Tissue Density: The breasts are heterogeneously dense, which may obscure small masses. Findings: Analyzed By CAD. Unchanged excisional scar superior left breast. There is no suspicious group of microcalcifications or new suspicious mass in either breast. Overall Assessment: Benign, BI-RAD 2 Management: Screening Mammogram of both breasts in 1 year. . Patient should continue monthly self-breast exams. A clinical breast exam by your physician is recommended on an annual basis. This exam should not preclude additional follow-up of suspicious palpable abnormalities. Note on Angelic scores and lifetime risk: 1. A Angelic score greater than 3% is considered moderate risk. If this is the case, consider specialist referral to assess eligibility for a risk reducing agent. 2. If overall lifetime risk for the development of breast cancer is 20% or higher, the patient may qualify for future screening with alternating mammogram and breast MRI. Electronically signed and approved by: Elvin Sanchez M.D. Radiologist
== END | disposition home or self-care (01) ==
LOC: RADMAMWWP 15:07
PROVIDERS: ATTEND Obstetrics & Gynecology
DX: Z12.31 Encounter for screening mammogram for malignant neoplasm of breast (principal); M85.89 Other specified disorders of bone density and structure, multiple sites; Z78.0 Asymptomatic menopausal state; Z80.3 Family history of malignant neoplasm of breast
CPT/HCPCS: 77063; 77067; 77080

== ENCOUNTER → 2024-03-23 | Outpatient (CLI) | payer MEDICAID ==
--- NOTE | 2024-03-23 12:54 | CT ---
EXAMINATION TYPE: CT chest w con DATE OF EXAM: 03/23/2024 COMPARISON: 09/23/2023 HISTORY: follow up lymph nodes CT DLP: 551.70 mGycm Automated exposure control for dose reduction was used. TECHNIQUE: CT scan of the chest is performed with IV Contrast, patient injected with 100 ml mL of Isovue 300. M IP Images are created on CT scanner and reviewed. 3D reconstructed images are created on an [employer] workstation and reviewed. FINDINGS: There are stable moderate emphysematous changes. The lungs are clear of consolidative/airspace density or abnormal interstitial density. There are no suspicious lung masses or nodules. There is no pleural effusion, pleural thickening or pneumothorax. The great vessels the chest are normal and there are no filling defects within the pulmonary arterial circulation.. Mild mediastinal and bilateral hilar adenopathy is again seen but appears mildly less prominent. For instance, the right hilar lymph node has decreased from 13 mm to 9.5 mm. Left hilar lymph node has de creased from 16.7 mm to 13.3 mm. A precarinal lymph node is stable approximately 13 mm. There is again to the upper abdomen reveals a markedly atrophic right kidney and No focal osseous lesions are seen. IMPRESSION: 1. No acute cardiopulmonary disease. 2. Mild mediastinal and bilateral hilar adenopathy decreasing compared to prior study. 3. Marked right renal atrophy. 3. Stable moderate emphysematous changes
== END | disposition home or self-care (01) ==
LOC: RADCTMAIN 11:59
PROVIDERS: ATTEND Internal Medicine Pulmonary Disease
DX: R59.0 Localized enlarged lymph nodes (principal); N26.1 Atrophy of kidney (terminal)
CPT/HCPCS: 71260; Q9967

== ENCOUNTER → 2024-05-16 | Outpatient (CLI) | payer MEDICAID ==
--- NOTE | 2024-05-10 08:51 | XR ---
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 FINDINGS: Stool within the colon most pronounced in the cecum. The bowel gas pattern is nonspecific w ithout dilated loops of small or large bowel. . Fecal material and gas are demonstrated throughout th e colon and rectum. There is no evidence for organomegaly or pneumoperitoneum. The osseous structure s are intact. No abnormal calcifications are present. IMPRESSION: Stool seen throughout the colon most pronounced in the cecum. After discussion with the patient was d etermined that the patient should come back with additional bowel prep and attempt exam.
--- NOTE | 2024-06-27 12:22 | FL ---
"Mio Nhung A. : 07/24/2060 EXAMINATION: XR Barium Enema w/ Air Complete DATE: 05/16/2024 10:23 AM COMPARISON: No priors available during downtime HISTORY: 63-year-old female K56.69, stricture sigmoid colon, patient with 2 failed prior colonoscopie s and history of diverticulosis. Total fluoroscopy time: 3 minutes 11 seconds. Total images: 59. Total DAP: 50 mGycm2. FINDINGS: Landscaper image shows nonobstructive bowel gas pattern. A calcified fibroid is noted in the pelvis. The rectum was cannulated by the building tech. Barium and air was subsequently administered. Barium reaches to the cecum with filling of the appendix. There is redundancy of the mid to distal si gmoid colon causing excessive overlap limiting visualization of these regions. Additional redundancy of the distal transverse colon. There is severe diverticulosis along the proximal to mid sigmoid colon and moderate to severe along t he descending colon. Additional scattered mild diverticulosis is present throughout the remainder of the colon. Segments of intermittent spasm are noted along the descending colon but no persistent fixed narrowing is clearly identified. No suspicious annular constricting lesion is seen. Given the redundancy of the colon extensive diverticular change, no obvious suspicious filling defect is identified. IMPRESSION: 1. No obvious annular constricting lesion is identified though there is limitation in assessment of t he mid to distal sigmoid due to excessive redundancy. Additional redundancy along the distal transver se colon. 2. Severe diverticulosis involving the proximal to mid sigmoid colon and moderate to severe along the descending colon. Mild throughout the remainder of the colon. Dictated by Dr. Ashlee Sanchez" [facility], , 06/27/2024 12:20 PM
== END | disposition home or self-care (01) ==
LOC: RADFLMAIN 05-10 07:51
PROVIDERS: ATTEND Surgery
DX: C18.7 Malignant neoplasm of sigmoid colon (principal); K57.30 Diverticulosis of large intestine without perforation or abscess without bleeding; K56.699 Other intestinal obstruction unspecified as to partial versus complete obstruction
CPT/HCPCS: 74018; 74270